=== PATIENT | female | born 1965 | race Caucasian/White ===

== ENCOUNTER 2017-05-03 06:37 | Day surgery (SDC) | payer OTHER ==
[2017-05-03 07:00] VITALS: BMI 31.6
[2017-05-03] MEDS ORDERED: Propofol 10 mg/ml Inj (20 ML) ONE ×2 (08:51→09:17)
[2017-05-03] MEDS ORDERED: Lidocaine 2% Inj (20ml) ONE (08:51)
[2017-05-03] MEDS ORDERED: Simethicone 40 mg/0.6 ml Liquid (30 ml) ONE (09:00)
[2017-05-03 10:08] VITALS: RESP 12; TEMP 97.2
[2017-05-03 12:59] VITALS: BP 145/80; PULSE 67; O2SAT 98
== END 2017-05-03 12:58 | disposition home or self-care (01) ==
LOC: C.ENDO 06:37
PROVIDERS: ATTEND Internal Medicine
DX: K29.50 Unspecified chronic gastritis without bleeding (principal); R10.9 Unspecified abdominal pain; K59.00 Constipation, unspecified; K20.9 Esophagitis, unspecified
CPT/HCPCS: 43239; 45378; 84703; 88305; J2704

== ENCOUNTER 2018-10-22 18:17 | Outpatient (CLI) | payer MEDICAID | END 2018-10-22 18:18 | disposition home or self-care (01) | LOC: C.SLEEP 18:18 | DX: G47.33 Obstructive sleep apnea (adult) (pediatric) (principal) ==